=== PATIENT | female | born 1985 | race African-American/Black ===

== ENCOUNTER 2021-07-18 19:45 | Emergency (ER) | payer OTHER ==
[~2021-07-18] VITALS: Ht 177.8 cm; Wt 136.1 kg
[2021-07-18] MEDS ORDERED: AMOX-277 PO (21:37)
[2021-07-18 21:50] VITALS: BP 147/86
== END 2021-07-18 22:05 | disposition home or self-care (01) ==
LOC: ER 19:45
DX: J02.9 Acute pharyngitis, unspecified (principal); Z88.6 Allergy status to analgesic agent